=== PATIENT | female | born 1935 | race Caucasian/White ===

== ENCOUNTER 2017-10-03 17:29 | Emergency (ER) | payer OTHER ==
[2017-10-03 17:47] VITALS: BP 184/64; TEMP 98.9; BMI 19.1
--- NOTE | 2017-10-03 19:54 | CT ---
EXAM: CT of the head without contrast History: Head trauma. Technique: Multiplanar CT images through the head were obtained without the administration of IV con trast Findings: The visualized paranasal sinuses and mastoid air cells are clear in general. No acute marco varial abnormalities. Intracranially the ventricular and cisternal spaces are normal in size, shape and configuration for a patient of this age. No dominant mass or midline shift. No hydrocephalous. No acute intracranial hemorrhage or abnormal extraaxial fluid collections. Impression: No acute intracranial process
--- NOTE | 2017-10-03 19:56 | CT ---
EXAM: CT of the maxillofacial region without contrast History: Facial trauma. Technique: Multiplanar CT images through the maxillofacial region were obtained without the administ ration of IV contrast Findings: Mild mucosal thickening of the inferior right maxillary sinus. Paranasal sinuses are othe rwise clear. Mastoid air cells are clear. Atherosclerotic vascular calcifications. No acute fractur e or dislocation. Nasal septum is bowed to the left. Bilateral ostiomeatal units are not occluded. Impression: No acute fracture
--- NOTE | 2017-10-03 19:58 | CT ---
EXAM: CT of the cervical spine without contrast History: Neck trauma. Technique: Multiplanar CT images through the cervical spine were obtained without the administration of IV contrast Findings: Emphysema seen within the visualized upper lungs. Visualized airway remains patent. Athe rosclerotic vascular calcifications. Osteopenia. No acute fracture or subluxation. Moderate to severe disc space narrowing at C4-5 and C 5-6 with posterior disc osteophyte complexes. Bony spinal canal is not significantly compromised. M ultilevel bilateral bony neural foraminal narrowing secondary to uncovertebral and facet hypertrophy which is severe on the right at C5-6. Impression: No acute osseous abnormality of the cervical spine. Degenerative changes
--- NOTE | 2017-10-03 20:00 | CT ---
EXAM: CT of the right knee without contrast History: Right knee trauma. Technique: Multiplanar CT images through the right knee were obtained without the administration of IV contrast. 3-D reconstructions were also acquired. Findings: Small joint effusion. Osteopenia. Mild tricompartmental joint space narrowing with no si gnificant osteophyte formation. There are subchondral cysts. No acute fracture or dislocation. Mil d anterior subcutaneous edema. There is edema seen within Hoffa's fat pad. Impression: 1. No acute osseous abnormality. 2. Small joint effusion and anterior subcutaneous edema. 3. Mild arthritis
--- NOTE | 2017-10-03 20:03 | DI ---
EXAM: Right elbow three views HISTORY: Fall COMPARISON: None. FINDINGS: There is no acute fracture or dislocation. The surrounding soft tissues are unremarkable. IMPRESSION: No acute findings
--- NOTE | 2017-10-03 20:06 | CT ---
EXAM: Noncontrast CT of the pelvis HISTORY: Fall COMPARISON: None available. TECHNIQUE: Noncontrast CT of the pelvis FINDINGS: No acute fracture or dislocation is identified. There is remote, healed fracture of the left inferio r pubic ramus. There is a small remote appearing fracture of the left sacral ala. 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 Atherosclerotic calcifications are present. There is a small bone island of the righ t femoral head/neck. IMPRESSION: No acute osseous abnormality identified. Remote, healed fracture of the left inferior pubic ramus. Small remote appearing fracture of the left sacral ala.
[2017-10-03] MEDS ORDERED: NORCO 5-325 PO STA (20:13)
--- NOTE | 2017-10-03 20:18 | ED.PDOC ---
General ED Provider: Dr. HPI ANAYA-ER Chief Complaint: Fall Stated Complaint: i slipped on the side walk and struck my face, my elbow and knee Time Seen by Physician: 17:35 Mode of Arrival: Walk-In Information Source: Patient, Family Exam Limitations: No limitations Nursing and Triage Documentation Reviewed and Agree: Yes Reviewed sepsis parameters & appropriate labs ordered?: Yes System Inflammatory Response Syndrome: Not Applicable Sepsis Protocol: For patient's 13 years and over: Temp is 96.8 and below OR 101 and greater Pulse >90 BPM Resp >20/minute Acutely Altered Mental Status Are patient's symptoms suggestive of a new infection, such as: -Pneumonia -Skin, Soft Tissue -Endocarditis -UTI -Bone, Joint Infection -Implantable Device -Acute Abdominal Infection -Wound Infection -Meningitis -Blood Stream Catheter Infection -Unknown Musculoskeletal Complaint Exam - Elbow Pain Complaint/Exam Mechanism of Injury: Reports: Trauma Onset/Duration: one houir Symptoms Are: Still present Onset of Pain: Reports: Immediate Initial Severity: Mild Current Severity: Mild Location: Reports: Discrete (elbow, face and right knee) Character: Reports: Dull, Aching Aggravating: Reports: Movement, Twisting, Pulling Associated Signs and Symptoms: Reports: Bruising. Denies: Swelling, Redness, Fever, Weakness, Numbness, Tingling Elbow Findings: Present: Swelling, Ecchymosis Tenderness: Present: Medial Condyle, Lateral Condyle, Olecranon Limited Range of Motion: Present: Flexion, Extension, Pronation Differential Diagnoses: Contusion, Closed Fracture Review of Systems - Review Of Systems Constitutional: Reports: No symptoms Eyes: Reports: No symptoms Ears, Nose, Mouth, Throat: Reports: No symptoms Respiratory: Reports: No symptoms, Other Cardiac: Reports: No symptoms GI: Reports: No symptoms : Reports: No symptoms Musculoskeletal: Reports: Joint pain Skin: Reports: No symptoms Neurological: Reports: No symptoms Endocrine: Reports: No symptoms Hematologic/Lymphatic: Reports: No symptoms All Other Systems: Reviewed and Negative Past Medical History - Past Medical History Previously Healthy: No Endocrine: Reports: Unknown Cardiovascular: Reports: Unknown Respiratory: Reports: Unknown Hematological: Reports: Unknown Gastrointestinal: Reports: Unknown Genitourinary: Reports: Unknown Neuro/Psych: Reports: Unknown Musculoskeletal: Reports: Unknown Cancer: Reports: Unknown Last Menstrual Period: menopause - Surgical History General Surgical History: Reports: Unknown - Family History Family History: Reports: Unknown - Social History Smoking Status: Former smoker Hx Substance Use: No Alcohol Screening: None - Immunizations Tetanus Shot up to Date: Yes Physical Exam - Physical Exam Appearance: Well-appearing, No pain distress, Well-nourished Pain Distress: Moderate Eyes: MICHA, EOMI, Conjunctiva clear ENT: Ears normal, Nose normal, Oropharynx normal Neck: Supple Respiratory: Airway patent, Breath sounds clear, Breath sounds equal, Respirations nonlabored Cardiovascular: RRR, Pulses normal, No rub, No murmur GI/: Soft, Nontender, No masses, Bowel sounds normal, No Organomegaly Musculoskeletal: Limited ROM Skin: Warm, Dry, Normal color Neurological: Sensation intact, Motor intact, Reflexes intact, Cranial nerves intact, Alert, Oriented Psychiatric: Affect appropriate, Mood appropriate, Anxious Interpretation - Radiology Interpretation Radiology Interpretation By: Radiologist Radiology Results: Negative Exam Interpreted: CT Scan Critical Care Note - Critical Care Note Total Time (mins): 0 Course - Course Orders, Labs, Meds: Orders Category Date Time Status Splint [ED SPLINT APPLICATION] .ONCE EMERGENCY 10/03/17 20:13 Active Wound care [ED WOUND CARE] .ONCE EMERGENCY 10/03/17 20:15 Ordered Hydrocodone Bit/Acetaminophen [Miles 5-325] MEDS 10/03/17 20:13 Discontinued 1 tab PO ONCE STA CT CERVICAL SPINE W/O CONTRAST Stat RADS 10/03/17 18:[address] HEAD W/O CONTRAST Stat RADS 10/03/17 18:[address] KNEE RIGHT WITHOUT CONTRAST Stat RADS 10/03/17 18:[address] MAXILLOFACIAL W/O CONTRAST Stat RADS 10/03/17 18:[address] PELVIS W/O CONTRAST Stat RADS 10/03/17 18:58 Completed ELBOW, RIGHT MIN 3 VIEWS Stat RADS 10/03/17 18:57 Completed Medications Discontinued Medications Generic Name Dose Route Start Last Admin Trade Name Freq PRN Reason Stop Dose Admin Hydrocodone Bitart/Acetaminophen 1 tab 10/03/17 20:13 Miles 5-325 PO 10/03/17 20:14 ONCE STA Vital Signs: Temp Pulse Resp BP Pulse Ox 10/03/17 17:30 98.9 F 72 20 184/64 H 96 Departure - Departure Time of Disposition: 20:18 Disposition: HOME SELF-CARE Discharge Problem: Multiple contusions Instructions: Contusion in Adults (ED) Condition: Good Pt referred to PMD for follow-up: Yes IPMP verified?: No Additional Instructions: norco 5mg q 5hrs prn pain #12--ice=--use walker--f/u with pcp--consider referral to orthopedics if pain continues Allergies/Adverse Reactions: Allergies No Known Allergies Allergy (Unverified 10/03/17 17:41) Home Medications: Ambulatory Orders 1 [Unobtainable] 10/03/17 Disposition Discussed With: Patient, Family
== END 2017-10-03 20:19 | disposition home or self-care (01) ==
LOC: ED 17:29
DX: S50.01XA Contusion of right elbow, initial encounter (principal); S09.93XA Unspecified injury of face, initial encounter; S89.91XA Unspecified injury of right lower leg, initial encounter; T14.8XXA Other injury of unspecified body region, initial encounter; W01.0XXA Fall on same level from slipping, tripping and stumbling without subsequent striking against object, initial encounter
CPT/HCPCS: 99283